=== PATIENT | female | born 2000 | race Two or more races ===

== ENCOUNTER 2024-03-21 19:53 | Emergency (ER) | payer BC ==
[~2024-03-21] VITALS: Ht 162.6 cm; Wt 63.5 kg
[2024-03-21] MEDS ORDERED: DICYCLOMINE HCL 20 MG TABLET PO STA (20:36)
[2024-03-21] MEDS ORDERED: KETOROLAC TROMETHAMINE 60 MG VIAL IM STA (20:37)
[2024-03-21] MEDS ORDERED: KETOROLAC TROMETHAMINE 60 MG VIAL IM ONE (20:50)
[2024-03-21] MEDS ORDERED: DICYCLOMINE HCL 10 MG CAPSULE PO ONE (20:50)
[2024-03-21 21:28] LABS: URINE APPEARANCE Clear; URINE BILIRRUBIN Negative (NEGATIVE); URINE COLOR Yellow; URINE GLUCOSE Negative (NEGATIVE); URINE KETONE Negative (NEGATIVE); URINE LEUKOCYTE Trace; URINE NITRATE Negative; URINE PROTEIN Negative (NEGATIVE); URINE UROBILINOGEN 0.2 E.U./dl
[2024-03-21 21:29] LABS: HEMATOCRIT 38.5 % (36.0-45.00); HEMOGLOBIN 13.3 g/dL (12.0-15.00); MEAN CELL VOLUME 91.2 fL (80.00-100.00); MEAN CORPUSCULAR HEMOGLOBIN 31.6 pg (27.00-32.0); MEAN CORPUSCULAR HGB CONC 34.6 g/dl (32.0-36.0); PLATELET COUNT 275 K/uL (150-450); RED BLOOD COUNT 4.23 M/uL (4.00-6.00); RED CELL DISTRIBUTION WIDTH 13.8 % (11.5-14.5)
[2024-03-21 21:32] LABS: URINE BACTERIA 655.1 uL (0.0-1933); URINE EPITHELIAL CELLS 13.5 uL (0.0-38.8); URINE RBC 24.5 uL (0.0-20.8); URINE WBC 35.8 uL (0.0-23.2)
[2024-03-21 21:35] LABS: URINE BLOOD TRACE
== END 2024-03-21 22:19 | disposition home or self-care (01) ==
LOC: ER 19:54
DX: R19.7 Diarrhea, unspecified (principal)